=== PATIENT | female | born 1985 | race Two or more races ===

== ENCOUNTER 2020-11-03 17:52 | Emergency (ER) | payer OTHER ==
[~2020-11-03] VITALS: Ht 167.6 cm; Wt 70.0 kg
[~2020-11-03 17:52] MED LIST: [UNRECOGNIZED DRUG - REMARK] PO
[2020-11-03 19:01] LABS: BASOPHILS % (AUTO) 0.7 % (0.0-2.0); EOSINOPHILS % (AUTO) 1.3 % (1.0-6.0); HEMATOCRIT 36.7 % (36-46); HEMOGLOBIN 11.7 g/dL (12.0-16.0); LYMPHOCYTES # (AUTO) 2.5 K/uL (1.0-4.8); LYMPHOCYTES % (AUTO) 35.2 % (22.0-44.0); MEAN CORPUSCULAR HEMOGLOBIN 26.1 pg (26.0-34.0); MEAN CORPUSCULAR HGB CONC 31.9 G/dL (31.0-37.0); MEAN CORPUSCULAR VOLUME 82 fL (80-100); MONOCYTES # (AUTO) 0.5 K/uL (0.1-1.0); MONOCYTES % (AUTO) 6.7 % (2.0-9.0); NEUTROPHILS % (AUTO) 56.1 % (40.0-70.0); PLATELET COUNT (AUTO) 246 K/uL (150-450); RED BLOOD CELL COUNT(AUTO) 4.49 MIL/uL (4.00-5.20); RED CELL DISTRIBUTION WIDTH 14.6 % (11.5-14.5)
[2020-11-03 19:01] LABS: APPEARANCE,URINE CLEAR (CLEAR); BILIRUBIN,URINE NEGATIVE (NEGATIVE); GLUCOSE, URINE (UA) NEGATIVE (NEGATIVE); KETONES,URINE NEGATIVE (NEGATIVE); LEUKOCYTE ESTERASE ,URINE NEGATIVE (NEGATIVE); NITRATE,URINE NEGATIVE (NEGATIVE); OCCULT BLOOD,URINE SMALL (NEGATIVE); PH,URINE 6.5 (5.0-8.0); PROTEIN,URINE NEGATIVE (NEGATIVE)
[2020-11-03 19:07] LABS: BACTERIA,URINE None Seen /HPF (None Seen); RBC,URINE 0-2 /HPF (0-2); SQUAMOUS EPITHELIAL CELL,UR Few /LPF (None Seen); WBC,URINE 0-2 /HPF (0-5)
[2020-11-03 19:15] LABS: ANION GAP 7 mmol/L (8-16); CALCIUM, TOTAL 8.8 mg/dL (8.8-10.5); CARBON DIOXIDE 29 mmol/L (22-29); CHLORIDE 103 mmol/L (98-107); CREATININE 0.74 mg/dL (0.60-1.30); GLOMERULAR FILTR. RATE CALC > 60 mL/min (>60); GLUCOSE,RANDOM 94 mg/dL (70-110); POTASSIUM 3.3 mmol/L (3.5-5.1); SODIUM SERUM 139 mmol/L (136-145); UREA NITROGEN, BLOOD 19 mg/dL (7-18)
[2020-11-03 19:26] LABS: ALANINE AMINOTRANSFERASE 31 U/L (12-78); ALBUMIN 3.9 g/dL (3.4-5.0); ALKALINE PHOSPHATASE 57 U/L (46-116); ASPARTATE AMINOTRANSFERASE 23 U/L (15-37); BILIRUBIN,TOTAL 0.2 mg/dL (0.1-1.0); HCG,QUANTITATIVE < 1 mIU/mL (0-6); LIPASE 167 U/L (73-393); TOTAL PROTEIN, SERUM 7.1 g/dL (6.4-8.2)
[2020-11-03] MEDS ORDERED: KETOROLAC TROMETHAMINE 60 MG/2 ML VIAL IM ONE (19:30)
[2020-11-03] MEDS ORDERED: POTASSIUM CHLORIDE 20 MEQ ER TABLET PO ONE (19:30)
[2020-11-03 20:06] VITALS: BP 127/62
== END 2020-11-03 20:20 | disposition home or self-care (01) ==
LOC: EMS 17:56
DX: R10.33 Periumbilical pain (principal); R11.2 Nausea with vomiting, unspecified; Z56.3 Stressful work schedule
CPT/HCPCS: 36415; 80053; 81001; 83690; 84702; 85025; 96372; 99283; J1885

== ENCOUNTER 2020-12-21 20:33 | Emergency (ER) | payer OTHER ==
[~2020-12-21] VITALS: Ht 165.1 cm; Wt 70.9 kg
[2020-12-21] MEDS ORDERED: ACETAMINOPHEN/CODEINE 300-30 MG TABLET PO ONE (23:45)
[2020-12-21] MEDS ORDERED: IBUPROFEN 600 MG TABLET PO ONE (23:45)
[2020-12-21] MEDS ORDERED: GuaiFENesin/D-METHORPHAN [SUGAR-FREE] 200-20MG/10 ML SYRUP UDCUP PO ONE (23:45)
[2020-12-22 00:17] VITALS: BP 119/65
== END 2020-12-22 01:53 | disposition home or self-care (01) ==
LOC: EMS 20:33
DX: J06.9 Acute upper respiratory infection, unspecified (principal); R07.89 Other chest pain
CPT/HCPCS: 93005; 99284; Z7502; Z7610

== ENCOUNTER 2021-07-03 14:39 | Emergency (ER) | payer OTHER ==
[~2021-07-03] VITALS: Ht 165.1 cm; Wt 75.0 kg
[2021-07-03 14:47] VITALS: BP 149/97
[2021-07-03 15:24] LABS: COVID AG,FIA SOURCE NASOPHARYNGEAL
== END 2021-07-03 18:55 | disposition home or self-care (01) ==
LOC: EMS 14:39
DX: U07.1 COVID-19 (principal)
CPT/HCPCS: 99283

== ENCOUNTER 2021-10-15 15:12 | Emergency (ER) | payer OTHER ==
[~2021-10-15] VITALS: Ht 165.1 cm; Wt 68.2 kg
[2021-10-15 16:16] LABS: COVID AG,FIA SOURCE NASAL SWAB
[2021-10-15 16:23] LABS: BASOPHILS % (AUTO) 0.2 % (0.0-2.0); EOSINOPHILS % (AUTO) 1.1 % (1.0-6.0); HEMATOCRIT 36.6 % (36-46); LYMPHOCYTES # (AUTO) 1.1 K/uL (1.0-4.8); LYMPHOCYTES % (AUTO) 18.1 % (22.0-44.0); MEAN CORPUSCULAR HEMOGLOBIN 26.9 pg (26.0-34.0); MEAN CORPUSCULAR HGB CONC 32.9 G/dL (31.0-37.0); MEAN CORPUSCULAR VOLUME 82 fL (80-100); MONOCYTES # (AUTO) 0.5 K/uL (0.1-1.0); MONOCYTES % (AUTO) 7.9 % (2.0-9.0); NEUTROPHILS # (AUTO) 4.4 K/uL (1.8-7.7); NEUTROPHILS % (AUTO) 72.7 % (40.0-70.0); PLATELET COUNT (AUTO) 210 K/uL (150-450); RED BLOOD CELL COUNT(AUTO) 4.47 MIL/uL (4.00-5.20); RED CELL DISTRIBUTION WIDTH 14.9 % (11.5-14.5)
[2021-10-15 16:32] LABS: CALCIUM, TOTAL 9.3 mg/dL (8.8-10.5); CARBON DIOXIDE 33 mmol/L (22-29); CHLORIDE 100 mmol/L (98-107); CREATININE 0.69 mg/dL (0.60-1.30); GLOMERULAR FILTR. RATE CALC > 60 mL/min (>60); GLUCOSE,RANDOM 94 mg/dL (70-110); UREA NITROGEN, BLOOD 9 mg/dL (7-18)
[2021-10-15 16:45] LABS: ALANINE AMINOTRANSFERASE 45 U/L (12-78); ALBUMIN 3.6 g/dL (3.4-5.0); ALKALINE PHOSPHATASE 67 U/L (46-116); ANION GAP 3 mmol/L (8-16); ASPARTATE AMINOTRANSFERASE 43 U/L (15-37); BILIRUBIN,TOTAL 0.2 mg/dL (0.1-1.0); HCG,QUANTITATIVE < 1 mIU/mL (0-6); LIPASE 131 U/L (73-393); POTASSIUM 4.2 mmol/L (3.5-5.1); SODIUM SERUM 136 mmol/L (136-145); TOTAL PROTEIN, SERUM 7.1 g/dL (6.4-8.2)
[2021-10-15] MEDS ORDERED: ONDANSETRON HCL 4 MG/2 ML VIAL IVP ONE (16:45)
[2021-10-15] MEDS ORDERED: SODIUM CHLORIDE 0.9% 1,000 ML IV ONE (16:45)
[2021-10-15] MEDS ORDERED: AZIT500T4 PO (17:48)
[2021-10-15 18:10] VITALS: BP 120/75
== END 2021-10-15 18:18 | disposition home or self-care (01) ==
LOC: EMS 15:26
DX: R19.7 Diarrhea, unspecified (principal); R11.2 Nausea with vomiting, unspecified; Z20.822 Contact with and (suspected) exposure to COVID-19
CPT/HCPCS: 36415; 80053; 83690; 84702; 85025; 87426; 96361; 96374; 99283; J2405; J7030

== ENCOUNTER 2021-12-25 14:56 | Emergency (ER) | payer OTHER ==
[~2021-12-25] VITALS: Ht 165.1 cm; Wt 72.7 kg
[~2021-12-25 14:56] MED LIST changes: +AZIT500T4 PO; -[UNRECOGNIZED DRUG - REMARK] PO
[2021-12-25 15:06] VITALS: BP 117/69
== END 2021-12-25 15:43 | disposition left against medical advice (07) ==
LOC: EMS 14:56
DX: R51.9 Headache, unspecified (principal); Z53.21 Procedure and treatment not carried out due to patient leaving prior to being seen by health care provider

== ENCOUNTER 2024-08-19 12:24 | Emergency (ER) | payer OTHER ==
[~2024-08-19] VITALS: Ht 165.1 cm; Wt 63.6 kg
[2024-08-19 12:49] VITALS: TEMP 98.2
[2024-08-19 13:30] VITALS: BP 115/71; PULSE 69; RESP 17; O2SAT 98
[2024-08-19 13:53] LABS: BASOPHILS % (AUTO) 0.4 % (0.0-2.0); EOSINOPHILS % (AUTO) 1.1 % (1.0-6.0); HEMATOCRIT 41.9 % (36-46); HEMOGLOBIN 13.8 g/dL (12.0-16.0); LYMPHOCYTES % (AUTO) 32.1 % (22.0-44.0); MEAN CORPUSCULAR HEMOGLOBIN 29.3 pg (26.0-34.0); MEAN CORPUSCULAR VOLUME 89 fL (80-100); MONOCYTES # (AUTO) 0.3 K/uL (0.1-1.0); MONOCYTES % (AUTO) 5.3 % (2.0-9.0); NEUTROPHILS # (AUTO) 3.8 K/uL (1.8-7.7); NEUTROPHILS % (AUTO) 61.1 % (40.0-70.0); PLATELET COUNT (AUTO) 232 K/uL (150-450); RED BLOOD CELL COUNT(AUTO) 4.72 MIL/uL (4.00-5.20); RED CELL DISTRIBUTION WIDTH 14.3 % (11.5-14.5); WHITE BLOOD COUNT (AUTO) 6.3 K/uL (4.5-11.0)
[2024-08-19 14:01] LABS: ANION GAP 7 mmol/L (8-16); CALCIUM, TOTAL 8.7 mg/dL (8.8-10.5); CARBON DIOXIDE 29 mmol/L (22-29); CHLORIDE 106 mmol/L (98-107); CREATININE 0.63 mg/dL (0.60-1.30); GLOMERULAR FILTR. RATE CALC > 60 mL/min (>60); GLUCOSE,RANDOM 87 mg/dL (70-110); POTASSIUM 3.9 mmol/L (3.5-5.1); SODIUM SERUM 142 mmol/L (136-145); UREA NITROGEN, BLOOD 12 mg/dL (7-18)
[2024-08-19 14:07] LABS: ALANINE AMINOTRANSFERASE 35 U/L (12-78); ALBUMIN 3.4 g/dL (3.4-5.0); ALKALINE PHOSPHATASE 69 U/L (46-116); ASPARTATE AMINOTRANSFERASE 24 U/L (15-37); BILIRUBIN,TOTAL 0.2 mg/dL (0.1-1.0); LIPASE 45 U/L (16-77); TOTAL PROTEIN, SERUM 6.9 g/dL (6.4-8.2)
[2024-08-19] MEDS ORDERED: OMEP20 PO (14:45)
[2024-08-19] MEDS ORDERED: HYDR30CR3 TP (14:45)
[2024-08-19] MEDS ORDERED: POLY119P3 PO (14:45)
[2024-08-19] MEDS ORDERED: HYDR25SU7 PR (14:45)
[2024-08-19] MEDS: MAGNESIUM CITRATE [LEMON] 300 ML ORAL SOLUTION PO ONE (15:06)
== END 2024-08-19 15:15 | disposition home or self-care (01) ==
LOC: EMS 12:24
DX: K64.9 Unspecified hemorrhoids (principal); K59.00 Constipation, unspecified; Z87.19 Personal history of other diseases of the digestive system; Z98.890 Other specified postprocedural states
CPT/HCPCS: 80048; 80076; 83690; 84703; 85025; 99283

== ENCOUNTER → 2025-02-26 | Emergency (ER) | payer OTHER ==
[~2025-02-26] VITALS: Ht 165.1 cm; Wt 72.7 kg
[~2025-02-26] MED LIST changes: -AZIT500T4 PO; +HYDR25SU7 PR; +HYDR30CR3 TP; +OMEP-148 PO; +POLY119P3 PO
[2025-02-26 21:28] VITALS: BP 115/78; PULSE 72; RESP 18; TEMP 97.7; O2SAT 100
[2025-02-26 21:54] LABS: PLATELET COUNT (AUTO) 220 K/uL (150-450); RED BLOOD CELL COUNT(AUTO) 4.58 MIL/uL (4.00-5.20); RED CELL DISTRIBUTION WIDTH 14.5 % (11.5-14.5); WHITE BLOOD COUNT (AUTO) 9.5 K/uL (4.5-11.0)
[2025-02-26 22:01] LABS: CALCIUM, TOTAL 8.7 mg/dL (8.8-10.5); CREATININE 0.75 mg/dL (0.60-1.30); GLOMERULAR FILTR. RATE CALC > 60 mL/min (>60); GLUCOSE,RANDOM 95 mg/dL (70-110); SODIUM SERUM 137 mmol/L (136-145); UREA NITROGEN, BLOOD 12 mg/dL (7-18)
[2025-02-26 22:09] LABS: APPEARANCE,URINE HAZY (CLEAR); GLUCOSE, URINE (UA) NEGATIVE (NEGATIVE); LEUKOCYTE ESTERASE ,URINE NEGATIVE (NEGATIVE); NITRATE,URINE NEGATIVE (NEGATIVE); OCCULT BLOOD,URINE NEGATIVE (NEGATIVE); SPECIFIC GRAVITIY, URINE 1.023 (1.003-1.030)
== END | disposition left against medical advice (07) ==
LOC: EMS 21:24
DX: R06.02 Shortness of breath (principal); R51.9 Headache, unspecified; R11.0 Nausea; Z53.21 Procedure and treatment not carried out due to patient leaving prior to being seen by health care provider
CPT/HCPCS: 80048; 81003; 83690; 85025